=== PATIENT | male | born 1965 | race Two or more races ===

== ENCOUNTER 2020-08-03 18:28 | Emergency (ER) | payer OTHER ==
[~2020-08-03] VITALS: Ht 167.6 cm; Wt 83.9 kg
== END 2020-08-03 20:37 | disposition home or self-care (01) ==
LOC: ER 18:28
DX: B37.0 Candidal stomatitis (principal)

== ENCOUNTER 2020-10-22 12:28 | Emergency (ER) | payer OTHER ==
[~2020-10-22] VITALS: Ht 167.6 cm; Wt 77.1 kg
== END 2020-10-22 17:51 | disposition home or self-care (01) ==
LOC: ER 12:28
DX: B34.9 Viral infection, unspecified (principal); Z20.822 Contact with and (suspected) exposure to COVID-19